=== PATIENT | male | born 1975 | race Caucasian/White ===

== ENCOUNTER 2025-04-14 17:41 | Emergency (ER) | payer MEDICAID ==
[~2025-04-14] VITALS: Ht 167.6 cm; Wt 73.0 kg
[2025-04-14 17:53] VITALS: O2SAT 98
[2025-04-14 19:14] LABS: BASOPHILS % 1.3 % (0.0-2.0); EOSINOPHILS % 0.5 % (0.0-5.0); HEMATOCRIT. 30.6 % (42.0-52.0); HEMOGLOBIN. 9.8 g/dL (14.0-18.0); LYMPHOCYTES % 29.0 % (20.0-50.0); MEAN PLATELET VOLUME 7.6 fl (7.4-10.4); MONOCYTES % 7.6 % (2.0-8.0); NEUTROPHILS % 61.6 % (40.0-76.0); PLATELET 223 x1000/uL (130-400); RED BLOOD CELL COUNT 3.44 mill/uL (4.7-6.1); RED CELL DISTRIBUTION WIDTH 17.3 % (11.6-14.6)
[2025-04-14] MEDS ORDERED: METOCLOPRAMIDE HCL 10MG/2ML VIAL IV ONE (19:15)
[2025-04-14 19:27] LABS: CREATININE 1.0 mg/dL (0.6-1.3); ETHANOL BLOOD 300 mg/dL (<10); TROPONIN I HIGH SENSITIVITY < 4 ng/L (3.0-53); UREA NITROGEN BLOOD < 5 mg/dL (9-23)
[2025-04-14 19:28] LABS: ASPARTATE AMINOTRANSFERASE 21 IU/L (<34)
[2025-04-14 19:29] LABS: BILIRUBIN DIRECT 0.2 mg/dL (<=3.0); BILIRUBIN TOTAL 0.4 mg/dL (0.1-1.0); PROTEIN TOTAL 8.9 g/dL (6.0-8.3)
[2025-04-14] MEDS: SODIUM CHLORIDE 0.9% 1,000 ML IV ONE (21:30)
[2025-04-14 21:31] LABS: TROPONIN I HIGH SENSITIVITY < 4 ng/L (3.0-53)
[2025-04-14] MEDS: METOCLOPRAMIDE HCL 10MG/2ML VIAL IV SCH (21:31)
[2025-04-14 22:44] VITALS: BP 104/65; PULSE 98; RESP 18; TEMP 36.8; O2SAT 98
== END 2025-04-14 22:48 | disposition home or self-care (01) ==
LOC: ER 17:41
DX: R00.2 Palpitations (principal); J44.89 Other specified chronic obstructive pulmonary disease; R00.0 Tachycardia, unspecified; E86.0 Dehydration; F10.129 Alcohol abuse with intoxication, unspecified; Y90.9 Presence of alcohol in blood, level not specified
CPT/HCPCS: 80076; 80048; 80320; 85025; 84484; 36415; 71045; 93005; 96361; 96374; 99285; J2765; J7030; G0480